=== PATIENT | male | born 1935 | race Two or more races ===

== ENCOUNTER 2019-07-03 08:32 | Emergency (ER) | payer OTHER, MEDICAID ==
[~2019-07-03] VITALS: Ht 167.6 cm; Wt 68.0 kg
[~2019-07-03 08:32] MED LIST: ASPI-463 OR; CLOPIDROGEL PO; CYAN250L PO; GLIP10TA9 PO; LISIPOW PO; METFORMIN PO; OYST500T28 PO; SIMV80TA73 PO; TERAZOSIN PO
[2019-07-03] MEDS ORDERED: SODIUM CHLORIDE 0.9% 1,000 ML IV ONE (08:44)
[2019-07-03 09:51] LABS: Basophils # (auto) 0.1 uL; Basophils % (auto) 0.4 % (0.0-2.0); Eosinophils # (auto) 0 uL; Hematocrit 35.8 % (41.0-53.0); Lymphocytes # (auto) 0.9 uL; Mean Corpuscular Hemoglobin 28.5 pg (28.0-32.0); Mean Corpuscular Hgb Conc. 33.4 g/dL (32.0-36.0); Mean Corpuscular Volume 85.2 fL (80.0-100.0); Monocytes # (auto) 1.3 uL; Neutrophils # (auto) 15.6 uL; Neutrophils % (auto) 87.6 % (37.0-80.0); Platelet Count (auto) 189 10^3/uL (140-450); Red Cell Distribution Width 14.4 % (11.8-14.3); White Blood Cell 17.8 10^3/uL (4.4-10.8)
[2019-07-03 10:04] LABS: INR 1.03 (0.9-1.15); Partial Thromboplastin Time 25.9 sec (23.64-32.05)
[2019-07-03 10:07] LABS: Albumin 3.7 g/dL (3.4-5.0); Calcium 8.5 mg/dL (8.5-10.1); Potassium 4.2 mmol/L (3.5-5.1)
[2019-07-03 10:11] LABS: BUN/Creatinine Ratio 18.3; Bilirubin, Total 0.4 mg/dL (0.2-1.0); Total Protein 7.4 g/dL (6.4-8.2)
[2019-07-03] MEDS ORDERED: cefTRIAXone 1GM/50ML D5W 50 ML IV ONE (11:00)
[2019-07-03 11:04] LABS: Alcohol, Urine < 3.0 mg/dL (0-5); Amphetamine Screen, Urine NEGATIVE (NEGATIVE); Barbiturate Scree,Urine NEGATIVE (NEGATIVE); Benzodiazephine Screen, Urine NEGATIVE (NEGATIVE); Cannabinoid Screen, Urine NEGATIVE (NEGATIVE); Cocaine Screen, Urine NEGATIVE (NEGATIVE); Phencyclidine Screen, Urine NEGATIVE (NEGATIVE)
[2019-07-03 11:10] LABS: Opiate Scree,Urine NEGATIVE (NEGATIVE)
[2019-07-03 11:15] LABS: Urine Bacteria MOD /hpf (None Seen); Urine Blood Negative /uL (Negative); Urine Specific Gravity 1.014 (1.001-1.035); Urine WBC 46 /hpf (0 - 3)
[2019-07-03] MEDS ORDERED: SODIUM CHLORIDE 0.9% 1,000 ML IV SCH (11:30)
[2019-07-03] MEDS ORDERED: AZITHROMYCIN 500MG/ 250ML 250 ML IV ONE (11:30)
[2019-07-03 13:25] VITALS: BP 153/60
== END 2019-07-03 13:40 | disposition short-term general hospital (02) ==
LOC: ER 08:32
DX: J18.9 Pneumonia, unspecified organism (principal); E11.21 Type 2 diabetes mellitus with diabetic nephropathy; N39.0 Urinary tract infection, site not specified; E78.5 Hyperlipidemia, unspecified; I10 Essential (primary) hypertension; R93.0 Abnormal findings on diagnostic imaging of skull and head, not elsewhere classified
CPT/HCPCS: 36415; 70450; 71046; 80053; 80307; 81001; 83735; 84443; 84484; 85025; 85610; 85730; 87040; 87086; 87088; 87186; 93005; 94761; 96365; 96366; 96367; 99285; J0456; J0696; J7030

== ENCOUNTER 2019-07-15 16:57 | Emergency (ER) | payer OTHER, MEDICAID ==
[~2019-07-15] VITALS: Ht 172.7 cm; Wt 79.4 kg
[2019-07-15 18:01] LABS: Basophils # (auto) 0 uL; Basophils % (auto) 0.3 % (0.0-2.0); Eosinophils # (auto) 0.2 uL; Eosinophils % (auto) 1.8 % (0.0-7.0); Hemoglobin 11.1 g/dL (13.5-17.5); Lymphocytes # (auto) 0.8 uL; Lymphocytes % (auto) 5.9 % (10.0-50.0); Mean Corpuscular Hemoglobin 28.6 pg (28.0-32.0); Mean Corpuscular Hgb Conc. 32.7 g/dL (32.0-36.0); Mean Corpuscular Volume 87.3 fL (80.0-100.0); Monocytes % (auto) 7.4 % (0.0-12.0); Neutrophils # (auto) 11.8 uL; Neutrophils % (auto) 84.6 % (37.0-80.0); Platelet Count (auto) 336 10^3/uL (140-450); Red Blood Cells 3.89 10^6/uL (4.5-5.90); Red Cell Distribution Width 14.9 % (11.8-14.3); White Blood Cell 13.9 10^3/uL (4.4-10.8)
[2019-07-15 18:11] LABS: Albumin 4.3 g/dL (3.4-5.0); Calcium 8.9 mg/dL (8.5-10.1); Potassium 3.9 mmol/L (3.5-5.1)
[2019-07-15 18:14] LABS: BUN/Creatinine Ratio 25.1; Bilirubin, Total 0.4 mg/dL (0.2-1.0); Total Protein 7.3 g/dL (6.4-8.2)
[2019-07-15 18:18] LABS: INR 1.25 (0.9-1.15); Partial Thromboplastin Time 31.1 sec (23.64-32.05)
[2019-07-15] MEDS ORDERED: InsuLIN REG 1unit/0.01ml Soln (100units/ml) IV ONE (20:30)
[2019-07-15 20:57] LABS: Urine Bacteria NONE SEEN /hpf (None Seen); Urine Blood TRACE /uL (Negative); Urine Specific Gravity 1.012 (1.001-1.035); Urine WBC <1 /hpf (0 - 3)
[2019-07-16 01:01] VITALS: BP 165/81
== END 2019-07-16 01:40 | disposition short-term general hospital (02) ==
LOC: ER 16:57 → EDBD 16:57 → ER 07-16 01:40
DX: N17.9 Acute kidney failure, unspecified (principal); E11.65 Type 2 diabetes mellitus with hyperglycemia; I48.91 Unspecified atrial fibrillation; K62.5 Hemorrhage of anus and rectum; D72.829 Elevated white blood cell count, unspecified; E11.9 Type 2 diabetes mellitus without complications; E78.5 Hyperlipidemia, unspecified; Z90.89 Acquired absence of other organs; Z88.0 Allergy status to penicillin
CPT/HCPCS: 36415; 74176; 80053; 81001; 82962; 85025; 85610; 85730; 86850; 86900; 86901; 93005; 99285; J1815; J7030

== ENCOUNTER 2019-08-31 02:45 | Inpatient (IN) | payer OTHER, MEDICAID ==
[~2019-08-31] VITALS: Ht 172.7 cm; Wt 62.7 kg
[2019-08-31 03:31] LABS: Basophils # (auto) 0.1 uL; Basophils % (auto) 0.7 % (0.0-2.0); Eosinophils # (auto) 0.2 uL; Eosinophils % (auto) 1.4 % (0.0-7.0); Hematocrit 38.4 % (41.0-53.0); Hemoglobin 12.7 g/dL (13.5-17.5); Lymphocytes # (auto) 1.5 uL; Lymphocytes % (auto) 10.3 % (10.0-50.0); Mean Corpuscular Hgb Conc. 33.1 g/dL (32.0-36.0); Mean Corpuscular Volume 84.5 fL (80.0-100.0); Neutrophils % (auto) 80.6 % (37.0-80.0); Platelet Count (auto) 193 10^3/uL (140-450); Red Blood Cells 4.55 10^6/uL (4.5-5.90); Red Cell Distribution Width 17.4 % (11.8-14.3); White Blood Cell 14.9 10^3/uL (4.4-10.8)
[2019-08-31 03:52] LABS: Albumin 2.7 g/dL (3.4-5.0); Calcium 8.6 mg/dL (8.5-10.1); INR 1.15 (0.9-1.15); Partial Thromboplastin Time 24.2 sec (23.64-32.05); Potassium 4.7 mmol/L (3.5-5.1)
[2019-08-31 03:53] LABS: Lactic Acid w/Reflex 2.1 mmol/L (0.4-2.0)
[2019-08-31 03:54] LABS: BUN/Creatinine Ratio 37.1
[2019-08-31 03:58] LABS: Bilirubin, Total 0.4 mg/dL (0.2-1.0); Total Protein 6.2 g/dL (6.4-8.2)
[2019-08-31] MEDS ORDERED: SODIUM CHLORIDE 0.9% 1,000 ML IV ONE (04:15)
[2019-08-31] MEDS ORDERED: ENOXAPARIN SOD 100 MG/1 ML SYRINGE SC ONE (04:15)
[2019-08-31] MEDS ORDERED: MORPHINE SULF INJ 2 MG/ML SYRINGE 1ML IV ONE (06:00)
[2019-08-31 08:35] LABS: Urine Amorphous Crystal MOD /hpf (None Seen); Urine Bacteria FEW /hpf (None Seen); Urine Blood 3+ /uL (Negative); Urine Hyaline Cast FEW /lpf (0 - 2); Urine Mucus FEW (None Seen); Urine Specific Gravity 1.013 (1.001-1.035); Urine WBC 2 /hpf (0 - 3)
[2019-08-31 08:47] LABS: Alcohol, Urine < 3.0 mg/dL (0-5); Amphetamine Screen, Urine NEGATIVE (NEGATIVE); Barbiturate Scree,Urine NEGATIVE (NEGATIVE); Benzodiazephine Screen, Urine NEGATIVE (NEGATIVE); Cannabinoid Screen, Urine NEGATIVE (NEGATIVE); Cocaine Screen, Urine NEGATIVE (NEGATIVE); Opiate Scree,Urine NEGATIVE (NEGATIVE); Phencyclidine Screen, Urine NEGATIVE (NEGATIVE)
[2019-08-31] MEDS ORDERED: traMADol HCL 50 MG TAB PO PRN (09:15)
[2019-08-31] MEDS ORDERED: DEXTROSE (50%) 50ML SYRG IV PRN (09:15)
[2019-08-31] MEDS ORDERED: MORPHINE SULF INJ 2 MG/ML SYRINGE 1ML IV PRN (09:15)
[2019-08-31] MEDS ORDERED: ASPirin-EC 81 mg tab PO ONE (09:15)
[2019-08-31] MEDS ORDERED: NITROGLYCERIN 0.4 MG SL TAB SL PRN (09:15)
[2019-08-31] MEDS ORDERED: LEVOFLOXACIN 750MG 150 ML IV SCH (09:15)
[2019-08-31] MEDS ORDERED: SODIUM BICARBONATE 50ML VIAL 50 ML in SOD CHL 0.45% 1,000 ML IV SCH (09:15)
[2019-08-31] MEDS ORDERED: MORPHINE SULFATE 4 MG/ML SYR/VIAL IV PRN (09:15)
[2019-08-31 09:35] LABS: Cholesterol 142 mg/dL (< 200)
[2019-08-31] MEDS: METOPROLOL TARTRATE 25 MG TAB PO SCH ×2 (09:37→21:25)
[2019-08-31 09:38] LABS: HDL Cholesterol 29 mg/dL (40-59); LDL Cholesterol 83 mg/dL (< 100); Triglycerides 223 mg/dL (< 150)
[2019-08-31] MEDS: CLOPIDOGREL BISULFATE 75 MG TAB PO SCH (09:38)
--- NOTE | 2019-08-31 11:07 | NUR ---
Telemetry admit from ER CRYSTAL CHAVEZ admitted to Telemetry unit after SBAR received. Patient is Iranian speaking only, helped by family to translate. Patient oriented to Jose Alberto Ayala, primary RN, unit, room, bed, and unit policies regarding patient care and visiting hours. Patient now on continuous telemetry monitoring, tele box # 39 and telemetry reading on arrival to unit is ST-110. Patient placed on bedside oxygen, weighed by bed scale and encouraged to call if they need something. All questions and concerns addressed, patient verbalized understanding.
[2019-08-31 11:30] VITALS: BP 145/80
[2019-08-31] MEDS: InsuLIN REG 1unit/0.01ml Soln (100units/ml) SC SCH ×3 (11:30→21:28)
[2019-08-31] MEDS: ACCU-CHEK COMFORT CURVE STRIP VI SCH ×3 (11:46→21:28)
--- NOTE | 2019-08-31 12:18 | NUR ---
Nephrology Consult Dr. Barger at bedside. Orders received.
--- NOTE | 2019-08-31 12:30 | NUR ---
Patient's son Javier at the bedside, informed the RN that if there will be discharge planning in the future, family wanted patient to be transferred to SNF within [place], [place] where Javier lives.
[2019-08-31] MEDS: SODIUM BICARBONATE 50ML VIAL 50 ML in SOD CHL 0.45% 1,000 ML IV SCH (12:33)
--- NOTE | 2019-08-31 12:45 | NUR ---
Sharp catheter insertion Patient assessed and determined to be in need of sharp catheter. Order obtained from Dr. Barger. Patient educated on catheter and reason for insertion. All questions answered. Sharp catheter 16 gauge [place] Island[place] inserted with clean sterile technique. Patient tolerated well.
--- NOTE | 2019-08-31 13:00 | NUR ---
Spoke with [facility], patient was just discharge from their service because of the hospitalization but if patient will be discharge, they will resume care as agreed by the family. Addendum: 08/31/19 at 1609 by Jose Alberto Ayala RN [facility] #[phone].
[2019-08-31 14:58] VITALS: BP 149/73
--- NOTE | 2019-08-31 16:30 | NUR ---
Wound photo of the right great toe taken.
[2019-08-31 17:00] VITALS: BP 112/71
[2019-08-31] MEDS: SODIUM BICARBONATE 650 MG TAB PO SCH ×2 (18:36→21:25)
--- NOTE | 2019-08-31 19:30 | NUR ---
Opening Shift Note Received report from ashley Abrams RN. Assumed care of patient, awake and alert. No S/S of distress/SOB or pain. Instructed on POC and to call for assist PRN, will continue to monitor for changes Q1hr and PRN. Bed placed in lowest position, bed alarm turned on and call light within reach.
[2019-08-31 20:00] VITALS: BP 133/73
[2019-08-31 22:00] VITALS: BP 133/73
--- NOTE | 2019-09-01 04:09 | NUR ---
rou Addendum: 09/01/19 at 0411 by ANG LUNA RN RN ROUNDS PATIENT IS RESTING IN BED WITH EYES CLOSED, NO DISTRESS NOTED AND PATIENT DENIES PAIN. REPOSITIONED PATIENT TO RIGHT SIDE AND OFF LOADED HEELS WITH PILLOWS.
[2019-09-01 05:00] VITALS: BP 141/71
[2019-09-01] MEDS: SODIUM BICARBONATE 650 MG TAB PO SCH ×4 (06:22→21:25)
[2019-09-01] MEDS: ACCU-CHEK COMFORT CURVE STRIP VI SCH ×4 (06:22→21:25)
[2019-09-01] MEDS: InsuLIN REG 1unit/0.01ml Soln (100units/ml) SC SCH ×4 (06:22→21:26)
--- NOTE | 2019-09-01 06:53 | NUR ---
PATIENT ATTEMPTED TO USE THE BEDPAN FOR BOWEL MOVEMENT, NO SUCCESS. WILL INFORM DAY NURSE AND REQUEST A STOOL SOFTENER.
[2019-09-01 07:29] LABS: Potassium 4.3 mmol/L (3.5-5.1)
[2019-09-01 07:41] LABS: BUN/Creatinine Ratio 33.5; Calcium 7.9 mg/dL (8.5-10.1)
--- NOTE | 2019-09-01 08:00 | NUR ---
Opening Shift Note Assumed care of patient, awake and alert. No S/S of distress/SOB, 4/10 bilateral lower extremity pain. Instructed on POC and to call for assist PRN, will continue to monitor for changes Q1hr and PRN.
[2019-09-01 09:18] VITALS: BP 131/80
[2019-09-01] MEDS: METOPROLOL TARTRATE 25 MG TAB PO SCH ×2 (09:27→21:25)
[2019-09-01] MEDS: CLOPIDOGREL BISULFATE 75 MG TAB PO SCH (09:27)
[2019-09-01] MEDS ORDERED: ASPirin-EC 81 mg tab PO SCH (10:00)
[2019-09-01] MEDS ORDERED: POLYETHYLENE GLYCOL 17 GM PWDR PO ONE (12:15)
--- NOTE | 2019-09-01 12:21 | NUR ---
Nutrition Assessment/consult Notes please see attached link for complete assessment Est. Needs based on BW (62 kg): 8074-4538 kcal (30-33 kcal/kgBW), 49-62 gms pro (0.8-1.0 gms/kgBW r/t elevRFT). Will continue to monitor pertinent labs and reassess nutrient need prn Addendum: 09/01/19 at [address] Amended: Links added.
--- NOTE | 2019-09-01 12:56 | NUR ---
4835 09/01/19 Contacted [facility] and spoke with Motor Vehicles Supervisor Boone to make her aware that there is a transfer order for this patient. Boone mentioned that patient was on Hospice prior to admission-and what is his transfer need. I requested that she provide me with a name and phone number for her physician to give to our physician so they can discuss the case-she refused to provide me with that information-she stated their process is for her to review the information and then provide it to her MD and he will decide if he wants to speak with our physician. I provided her with contact information for Dr. Azul as well as the nurse's station. I faxed her the transfer order and Notice Regarding Post Stabilization to [phone].
[2019-09-01 13:00] VITALS: BP 134/85
--- NOTE | 2019-09-01 13:00 | NUR ---
Patient is for transfer to [place] once bed is available. Patient daughter Jeanette is aware.
--- NOTE | 2019-09-01 16:00 | NUR ---
IV removal IV gauge 22 on the left wrist noted to infiltrated and patient complained of pain on the site. IV DC'd with clean sterile technique, catheter fully intact. Pressure dressing applied to site. Patient tolerated well.
--- NOTE | 2019-09-01 16:30 | NUR ---
IV insertion IV access obtained, via clean sterile technique by inserting 20 gauge catheter at left wrist after one attempt. IV secured properly. No trauma to site. Patient tolerated well.
[2019-09-01] MEDS: SODIUM BICARBONATE 50ML VIAL 50 ML in SOD CHL 0.45% 1,000 ML IV SCH (16:56)
[2019-09-01 17:04] VITALS: BP 143/76
--- NOTE | 2019-09-01 19:10 | NUR ---
Opening Shift Note Received report from ashley Abrams. Assumed care of patient, awake and alert. No S/S of distress/SOB or pain. Instructed on POC and to call for assist PRN, will continue to monitor for changes Q1hr and PRN. Bed placed in lowest position, bed alarm turned on and call light within reach.
--- NOTE | 2019-09-01 19:30 | NUR ---
RECEIVED REPORT FROM JALYN FROM [facility] AND STATES THAT PATIENT HAS A ROOM 633 IN [facility]. TRANSPORT WILL SE[facility] [employer] ACTIVITIES CLERK PATIENT AT 2200.
--- NOTE | 2019-09-01 21:30 | NUR ---
REPORT GIVEN TO LEXY AT [phone]. ALL QUESTIONS ARE ANSWERED.
--- NOTE | 2019-09-01 22:55 | NUR ---
Pt being trans to another hosp Order obtained for transfer of CRYSTAL CHAVEZ to [facility] Room 633. Report called/given to Corinne . Report given to EMS transport team. Medication reconciliation form completed and copy given to patient. Transported via [facility] along with copied chart and imaging films/disk and all personal belongings. No distress noted on time of departure. Family notified of destination and room number, verbalized understanding.
== END 2019-09-01 23:20 | disposition short-term general hospital (02) | DRG 280 ==
LOC: EDBD 02:45 → ER 02:47 → TELE 02:48 → TELE-CENTR 11:32
PROVIDERS: ADMIT Nurse Practitioner Acute Care; ATTEND Internal Medicine
DX: I21.4 Non-ST elevation (NSTEMI) myocardial infarction (principal); N17.0 Acute kidney failure with tubular necrosis; I50.43 Acute on chronic combined systolic (congestive) and diastolic (congestive) heart failure; I47.1 Supraventricular tachycardia; E87.2 Acidosis; C20 Malignant neoplasm of rectum; I13.0 Hypertensive heart and chronic kidney disease with heart failure and stage 1 through stage 4 chronic kidney disease, or unspecified chronic kidney disease; R65.10 Systemic inflammatory response syndrome (SIRS) of non-infectious origin without acute organ dysfunction; N18.4 Chronic kidney disease, stage 4 (severe); D72.823 Leukemoid reaction; D72.829 Elevated white blood cell count, unspecified; R79.89 Other specified abnormal findings of blood chemistry; E11.22 Type 2 diabetes mellitus with diabetic chronic kidney disease; E11.51 Type 2 diabetes mellitus with diabetic peripheral angiopathy without gangrene; N40.0 Benign prostatic hyperplasia without lower urinary tract symptoms; Z66 Do not resuscitate; E78.00 Pure hypercholesterolemia, unspecified; E78.5 Hyperlipidemia, unspecified; I25.10 Atherosclerotic heart disease of native coronary artery without angina pectoris; I25.2 Old myocardial infarction; Z79.899 Other long term (current) drug therapy; Z88.0 Allergy status to penicillin; Z90.49 Acquired absence of other specified parts of digestive tract
CPT/HCPCS: 36415; 71045; 80048; 80053; 80061; 80307; 81001; 82962; 83036; 83605; 83880; 84484; 85025; 85610; 85730; 87040; 93005; 93306; 93926; 93970; 96361; 96365; 96367; 96372; G0378; J1815; J1956